=== PATIENT | female | born 1980 | race Hispanic/Latino ===

== ENCOUNTER 2024-11-26 08:02 | Emergency (ER) | payer OTHER, SELFPAY ==
[2024-11-26] MEDS ORDERED: NA CHLORIDE 0.9% 1,000 ML ONE (08:36)
[2024-11-26] MEDS ORDERED: ONDANSETRON 4 MG/2 ML VIAL ONE (08:36)
[2024-11-26] MEDS ORDERED: MORPHINE 4 MG/ML SYR ONE (08:36)
[2024-11-26 08:47] LABS: Absolute Basophils 0.1 K/uL (0-0.5); Absolute Eosinophils 0.2 K/uL (0-0.5); Absolute Lymphocytes (CBC) 2.6 K/uL (0.7-4.9); Absolute Monocytes 0.5 K/uL (0.1-1.3); Basophils % 0.8 % (0-1.3); Eosinophils % 2.7 % (0-4.4); Hematocrit 43.8 % (36.0-45.0); Hemoglobin 15.3 g/dL (12.0-15.0); Lymphocytes % 30.6 % (15.3-44.8); MCH 33.4 pg (27.0-35.0); MCHC 34.9 g/dL (32.0-36.0); MCV 95.8 fL (80-100); MPV 9.2 fL (7.6-11.3); Monocytes % 6.2 % (3.3-12.3); Neutrophils % 59.7 % (41.7-73.7); Platelets 271 thou/uL (152-406); RBC Red Blood Cell Count 4.57 M/uL (3.86-4.86); Red Cell Distribution Width 12.8 % (12.1-15.2)
[2024-11-26 09:05] LABS: Albumin 3.9 g/dL (3.4-5.0); Anion Gap 8.8 mEq/L (5.0-15.0); Bilirubin Total 0.4 mg/dL (0.2-1.0); Globulin 4.1 g/dL (2.3-3.5); Potassium 3.8 mEq/L (3.5-5.1)
[2024-11-26 10:07] LABS: Specific Gravity 1.013 (1.005-1.030)
[2024-11-26 10:09] LABS: Specific Gravity 1.013 (1.005-1.030); Urine Bacteria <20 /HPF (<20); Urine Bilirubin NEGATIVE (Negative); Urine Blood 1+ (Negative); Urine Clarity Extremely Turbid (Clear); Urine Color Light-Yellow (Yellow); Urine Culture Reflex Order NOT NEEDED; Urine Glucose NEGATIVE (Negative); Urine Ketones NEGATIVE (Negative); Urine Microscopic Reflex YN ORDER UMIC; Urine Mucus 2+ /HPF (None Seen); Urine Nitrite NEGATIVE (Negative); Urine Protein NEGATIVE (Negative); Urine RBC <5 /HPF (None Seen); Urine Urobilinogen Normal (Normal); Urine pH 5.5 (5.0-7.0)
--- NOTE | 2024-11-26 10:39 | RAD REPORT ---
EXAMINATION: CT ABDOMEN AND PELVIS WITHOUT CONTRAST CLINICAL INDICATION: Abdominal pain. Right flank pain TECHNIQUE: CT abdomen and pelvis was performed, as per department protocol. IV contrast and oral was not administered.Axial, sagittal and coronal reconstructions were obtained. One or more of the following dose reduction techniques were used: Automated exposure control, adjustment of the mA and/o r kV according to the patient size, and/or iterative reconstruction. Unless otherwise specified, incidental findings do not require dedicated imaging follow-up. [id number]. COMPARISON: No prior exam. FINDINGS: The lack of intravenous and oral contrast limits evaluation of solid organs, vessels and bowel. The liver, spleen, pancreas, adrenals and kidneys appear grossly normal No evidence of diverticulitis Normal appendix. 2.3 cm left ovarian cyst. Minimal free fluid. No follow-up imaging recommended. Small umbilical hernia IMPRESSION: 2.3 cm left ovarian cyst with minimal free fluid
--- NOTE | 2024-11-26 10:45 | EDPHYS ---
Physician Documentation [facility] Name: Millie Yu Age: 44 yrs Sex: Female : 1980 Arrival Date: 11/26/2024 Time: 08:02 Bed 18 Private MD: ED Physician Maurice Worley HPI: 11/26 08:33 This 44 yrs old Female presents to ER via Ambulatory with complaints of Low sp3 Back Pain, Nausea, Tremor. 08:33 44-year-old female with no past medical history presents with right flank pain sp3 radiating around to the right lower quadrant for 5 days. She denies any other symptoms including urinary frequency, dysuria, gross visualized hematuria, history of kidney stones, upper abdominal pain, upper back pain, chest pain, shortness of breath, fever, URI symptoms, known sick contacts, travel history, prolonged immobilization, numbness tingling extremities, rash, or any other signs or symptoms on ROS at this time.. 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 - Infectious Disease History:: Denies. - Social history:: Smoking status: Patient reports the use of cigarette tobacco products, smokes one-half pack cigarettes per day. ROS: 08:34 Constitutional: Negative for fever, chills, and weight loss, Eyes: Negative for injury, sp3 pain, redness, and discharge, ENT: Negative for injury, pain, and discharge, Neck: Negative for injury, pain, and swelling, Cardiovascular: Negative for chest pain, palpitations, and edema, Respiratory: Negative for shortness of breath, cough, wheezing, and pleuritic chest pain, : Negative for injury, bleeding, discharge, and swelling, MS/Extremity: Negative for injury and deformity, Skin: Negative for injury, rash, and discoloration, Neuro: Negative for headache, weakness, numbness, tingling, and seizure, Psych: Negative for depression, anxiety, suicide ideation, homicidal ideation, and hallucinations, Allergy/Immunology: Negative for hives, rash, and allergies, Endocrine: Negative for neck swelling, polydipsia, polyuria, polyphagia, and marked weight changes, 08:34 All other systems are negative, Exam: 08:34 Constitutional: This is a well developed, well nourished patient who is awake, alert, sp3 and in no acute distress. Head/Face: Normocephalic, atraumatic. Eyes: Pupils equal round and reactive to light, extra-ocular motions intact. Lids and lashes normal. Conjunctiva and sclera are non-icteric and not injected. Cornea within normal limits. Periorbital areas with no swelling, redness, or edema. Neck: Trachea midline, no thyromegaly or masses palpated, and no cervical lymphadenopathy. Supple, full range of motion without nuchal rigidity, or vertebral point tenderness. No Meningismus. Chest/axilla: Normal chest wall appearance and motion. Nontender with no deformity. No lesions are appreciated. Cardiovascular: Regular rate and rhythm with a normal S1 and S2. No gallops, murmurs, or rubs. Normal PMI, no JVD. No pulse deficits. Respiratory: Lungs have equal breath sounds bilaterally, clear to auscultation and percussion. No rales, rhonchi or wheezes noted. No increased work of breathing, no retractions or nasal flaring. Skin: Warm, dry with normal turgor. Normal color with no rashes, no lesions, and no evidence of cellulitis. MS/ Extremity: Pulses equal, no cyanosis. Neurovascular intact. Full, normal range of motion. Neuro: Awake and alert, GCS 15, oriented to person, place, time, and situation. Cranial nerves II-XII grossly intact. Motor strength 5/5 in all extremities. Sensory grossly intact. Cerebellar exam normal. Normal gait. Psych: Awake, alert, with orientation to person, place and time. Behavior, mood, and affect are within normal limits. Vital Signs: 08:15 BP 178 / 98; Pulse 70; Resp 18; Temp 98.2; Pulse Ox 95% ; Weight 90.72 kg; Height 5 ft. ll1 4 in. ; Pain 10/10; 10:49 BP 138 / 88; Pulse 80; Resp 20; Temp 98; Pulse Ox 100% on R/A; kj2 08:15 Body Mass Index 34.33 (90.72 kg, 162.56 cm) ll1 08:15 Pain Scale: Adult ll1 MDM: 08:09 Medical Screening Exam initiated sp3 08:34 Data reviewed: vital signs, nurses notes, lab test result(s), radiologic studies. ED sp3 course: 44-year-old female with right flank and right lower quadrant abdominal pain. Differential diagnosis includes UTI/pyelonephritis spectrum, ureterolithiasis/kidney stone spectrum, musculoskeletal pain, other intra-abdominal pathology and to a lesser degree SALES ADMINISTRATOR pathology though very low on the differential. Functional abdominal pain also possibility. Workup will include CT scan of the abdomen pelvis kidney stone protocol, general labs, UA, hCG and pain and nausea control. Disposition pending workup patient course.. 10:44 ED course: Full workup negative. Patient has 2.3 cm left ovarian cyst but that is on sp3 the opposite side of the pain. Appendix is normal. No kidney stone or UTI noted. Will safely discharge patient home on general pain medication and follow-up to PCP.. 11/26 08:19 Order name: CBC with Diff; Complete Time: 09:58 sp3 11/26 08:19 Order name: CMP; Complete Time: 09:58 sp3 11/26 08:19 Order name: Lipase; Complete Time: 09:58 sp3 11/26 08:19 Order name: Test, Urine; Complete Time: 10:15 sp3 11/26 08:19 Order name: Urinalysis w/ reflexes; Complete Time: 10:15 sp3 11/26 08:19 Order name: CT Abd/Pelvis - Without Contrast; Complete Time: 10:42 sp3 11/26 08:19 Order name: IV Saline Lock; Complete Time: 08:32 sp3 11/26 08:19 Order name: Labs collected and sent; Complete Time: 08:32 sp3 Administered Medications: 08:41 Drug: Ondansetron IVP 4 mg IVP once; over 2 minutes Route: IVP; Site: left hand; ll1 10:00 Follow up: Response: No adverse reaction; Nausea is decreased ll1 08:41 Drug: morphine IVP or IV 4 mg IVP once over 4 mins {Note: pain 10/10 RASS 0.} Route: ll1 IVP; Infused Over: 4 mins; Site: left hand; 10:00 Follow up: Response: No adverse reaction; Pain is decreased; RASS: Alert and Calm (0) ll1 08:41 Drug: NS 0.9% IV 1000 ml IV at 1 bolus Per protocol; to be given as a bolus over 60 ll1 minutes Route: IV; Rate: 1 bolus; Site: left hand; 11:06 Follow up: IV Status: Completed infusion; IV Intake: 1000ml kj2 Disposition Summary: 11/26/24 10:45 Discharge Ordered Notes: Location: Home sp3 Condition: Stable sp3 Diagnosis - Abdominal pain, right flank pain sp3 Followup: sp3 - With: Private Physician - When: Upon discharge from the Emergency Department - Reason: Continuance of care Discharge Instructions: - Discharge Summary Sheet sp3 - Abdominal Pain, Adult sp3 Forms: - Medication Reconciliation Form sp3 - Antibiotic Education sp3 - Prescription Opioid Use sp3 - Patient Portal Instructions sp3 - Leadership Thank You Letter sp3 Prescriptions: - Tramadol 50 mg Oral Tablet - take 1 tablet ORAL route every 8 hours as needed; 12 tablet; Refills: 0, sp3 Product Selection Permitted Signatures: Dispatcher [employer] Dari Wrad, RN RN ll1 Maurice Worley MD MD sp3 Radha Gonzalez RN RN kj2 Corrections: (The following items were deleted from the chart) 08:19 08:19 CBC+H.LAB.BRZ ordered. EDMS EDMS 08:19 08:19 COMPREHENSIVE METABOLIC PANEL+C.LAB.BRZ ordered. EDMS EDMS 08:19 08:19 LIPASE+C.LAB.BRZ ordered. EDMS EDMS 08:19 08:19 Test, Urine+UC.LAB.BRZ ordered. EDMS EDMS 08:19 08:19 Urinalysis+U.LAB.BRZ ordered. EDMS EDMS 08:19 08:19 Abdomen Pelvis Wo Con+CT.RAD.BRZ ordered. EDMS EDMS
--- NOTE | 2024-11-26 10:45 | ER ---
Nurse's Notes [facility] Name: Millie Yu Age: 44 yrs Sex: Female : 1980 Arrival Date: 11/26/2024 Time: 08:02 Bed 18 Private MD: Diagnosis: Abdominal pain, right flank pain Presentation: 11/26 08:15 Chief complaint: Patient states: R flank pressure started Thursday. Started N/V this ll1 morning with severe pain. Coronavirus screen: Client denies travel out of the [place] in the last 14 days. At this time, the client does not indicate any symptoms associated with coronavirus-19. Ebola Screen: Patient denies travel to an Ebola-affected area in the 21 days before illness onset. Initial Sepsis Screen: Does the patient meet any 2 criteria? No. Patient's initial sepsis screen is negative. Does the patient have a suspected source of infection? No. Patient's initial sepsis screen is negative. Risk Assessment: Do you want to hurt yourself or someone else? Patient reports no desire to harm self or others. Onset of symptoms was November 22, 2024. 08:15 Method Of Arrival: Ambulatory ll1 08:15 Acuity: SHREE 3 ll1 Triage Assessment: 08:16 General: Appears uncomfortable, Behavior is calm, cooperative, appropriate for age, ll1 crying. Pain: Complains of pain in R flank. GI: Reports cramping, diarrhea, nausea, vomiting. : Reports pain in right flank(s). 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 - Infectious Disease History:: Denies. - Social history:: Smoking status: Patient reports the use of cigarette tobacco products, smokes one-half pack cigarettes per day. Screenin:12 [facility] ED Fall Risk Assessment (Adult) History of falling in the last 3 months, ll1 including since admission No falls in past 3 months (0 pts) Confusion or Disorientation No (0 pts) Intoxicated or Sedated No (0 pts) Impaired Gait No (0 pts) Mobility Assist Device Used No (0 pt) Altered Elimination No (0 pt) Score/Fall Risk Level 0 - 2 = Low Risk Maintained a safe environment, Hourly rounding (assess needs \T\ fall precautionary measures) done. Abuse screen: Denies threats or abuse. Nutritional screening: No deficits noted. Tuberculosis screening: No symptoms or risk factors identified. Assessment: 08:45 Reassessment: No changes from previously documented assessment. Patient and/or family ll1 updated on plan of care and expected duration. Pain level reassessed. Patient is alert, oriented x 3, equal unlabored respirations, skin warm/dry/pink. 10:01 Reassessment: No changes from previously documented assessment. Patient and/or family ll1 updated on plan of care and expected duration. Pain level reassessed. Patient is alert, oriented x 3, equal unlabored respirations, skin warm/dry/pink. 10:49 Reassessment: Patient appears in no apparent distress at this time. Patient and/or kj2 family updated on plan of care and expected duration. Pain level reassessed. Patient is alert, oriented x 3, equal unlabored respirations, skin warm/dry/pink. 10:50 GI: symptoms have subsided. kj2 Vital Signs: 08:15 BP 178 / 98; Pulse 70; Resp 18; Temp 98.2; Pulse Ox 95% ; Weight 90.72 kg; Height 5 ft. ll1 4 in. ; Pain 10/10; 10:49 BP 138 / 88; Pulse 80; Resp 20; Temp 98; Pulse Ox 100% on R/A; kj2 08:15 Body Mass Index 34.33 (90.72 kg, 162.56 cm) ll1 08:15 Pain Scale: Adult ll1 ED Course: 08:05 Patient arrived in ED. sj2 08:08 Maurice Worley MD is Attending Physician. sp3 08:08 Arm band placed on Patient placed in an exam room, on a stretcher. ll1 08:16 Triage completed. ll1 08:31 Radiology exam delayed due to test not completed at this time. mw3 08:32 Dari Romo, SIOBHAN is Primary Nurse. ll1 08:35 CBC with Diff Sent. em1 08:35 CMP Sent. em1 08:35 Lipase Sent. em1 08:36 Initial lab(s) drawn, by me, sent to lab. Inserted saline lock: 20 gauge in left wrist, em1 using aseptic technique. Blood collected. Flushed with 10 mL NS. 09:13 Patient has correct armband on for positive identification. Bed in low position. ll1 Provided Education on: ER procedures and process. Cardiac monitoring not applicable on this patient. 09:57 Radiology exam delayed due to test not completed at this time. mw3 10:00 Urinalysis w/ reflexes Sent. ll1 10:00 Test, Urine Sent. ll1 10:05 Report received from SIOBHAN Chapin. kj2 10:19 No provider procedures requiring assistance completed. kj2 10:22 CT Abd/Pelvis - Without Contrast In Process Unspecified. EDMS 11:05 IV discontinued, intact, bleeding controlled, No redness/swelling at site. Pressure kj2 dressing applied. Administered Medications: 08:41 Drug: Ondansetron IVP 4 mg IVP once; over 2 minutes Route: IVP; Site: left hand; 1 10:00 Follow up: Response: No adverse reaction; Nausea is [facility] 08:41 Drug: morphine IVP or IV 4 mg IVP once over 4 mins {Note: pain 10/10 RASS 0.} Route: ll1 IVP; Infused Over: 4 mins; Site: left hand; 10:00 Follow up: Response: No adverse reaction; Pain is decreased; RASS: Alert and Calm (0) 1 08:41 Drug: NS 0.9% IV 1000 ml IV at 1 bolus Per protocol; to be given as a bolus over 60 ll1 minutes Route: IV; Rate: 1 bolus; Site: left hand; 11:06 Follow up: IV Status: Completed infusion; IV Intake: 1000ml kj2 Medication: 09:13 VIS not applicable for this client. ll1 Intake: 11:06 IV: 1000ml; Total: 1000ml. kj2 Outcome: 10:45 Discharge ordered by . sp3 11:05 Discharged to home ambulatory, kj2 11:05 Condition: stable 11:05 Discharge instructions given to patient, Instructed on discharge instructions, follow up and referral plans. Demonstrated understanding of instructions, follow-up care, 11:15 Patient left the ED. kj2 Signatures: Dispatcher [employer] EDMS Ortiz Morgan em1 Lillie Padilla mw3 Dari Romo RN RN ll1 Maurice Worley MD MD sp3 Radha Gonzalez RN RN kj2 Fredy Truong 2
[2024-11-26 11:40] VITALS: BP 138/88; TEMP 98; O2SAT 100
== END 2024-11-26 11:15 | disposition home or self-care (01) ==
LOC: ER 08:02
DX: R10.31 Right lower quadrant pain (principal)
CPT/HCPCS: 36415; 74176; 80053; 81001; 81025; 83690; 85025; 96361; 96374; 96375; 99284; J2405; J7030